=== PATIENT | female | born 1925 | race Caucasian/White ===

== ENCOUNTER 2016-03-20 07:52 | Observation (INO) | payer MEDICARE, OTHER ==
[~2016-03-20] VITALS: Ht 142.2 cm; Wt 45.0 kg
[2016-03-20 08:34] LABS: BASO % 0.4 % (0.0-1.0); EOS # 0.2 K/mm3 (0.0-0.50); EOS % 1.7 % (0.0-3.0); LARGE UNSTAINED CELL # 0.4 K/mm3 (0.0-0.4); LARGE UNSTAINED CELL % 3.9 % (0.0-4.0); LYMPH # 5.4 K/mm3 (1.5-4.5); LYMPH % 49.1 % (24.0-44.0); MEAN CORPUSCULAR HEMOGLOBIN 31.2 pg (27.0-33.0); MEAN CORPUSCULAR HGB CONC 32.8 g/dl (32.0-36.5); MEAN CORPUSCULAR VOLUME 95.2 fl (80.0-96.0); MONO # 0.6 K/mm3 (0.0-0.8); MONO % 5.6 % (0.0-5.0); NEUTROPHILS # 4.3 K/mm3 (1.8-7.7); NEUTROPHILS % 39.4 % (36.0-66.0); PLATELET COUNT, AUTOMATED 194 k/mm3 (150-450); RED CELL DISTRIBUTION WIDTH 12.7 % (11.5-14.5)
--- NOTE | 2016-03-20 08:50 | REP ---
Left lower extremity deep vein duplex ultrasound, stat request: The deep veins demonstrate normal compression, normal Doppler color flow and normal Doppler waveforms with respiration augmentation at multiple levels from the popliteal vein to the common femoral vein. There is no evidence of deep vein thrombus. There is a 3.9 by 2.3 x 3.5 cm Weldon's cyst in the popliteal fossa. Signed by Valentino Min MD 03/20/2016 08:42 A
[2016-03-20 08:52] LABS: ANION GAP 6 MEQ/L (8-16); BLOOD UREA NITROGEN 18 MG/DL (7-18); CALCIUM LEVEL 8.7 MG/DL (8.8-10.2); CARBON DIOXIDE LEVEL 31 MEQ/L (21-32); CHLORIDE LEVEL 106 MEQ/L (98-107); CREATININE FOR GFR 0.86 MG/DL (0.55-1.02); GLOMERULAR FILTRATION RATE > 60.0 (>32); GLUCOSE, FASTING 117 MG/DL (83-110); SODIUM LEVEL 143 MEQ/L (136-145)
[2016-03-20 09:24] LABS: ERYTHROCYTE SEDIMENTATION RATE 19 mm/hr (0-42)
--- NOTE | 2016-03-20 09:25 | REP ---
LEFT KNEE, FIVE VIEWS: HISTORY: Pain. There is no acute fracture or dislocation. There is narrowing of the joint spaces. Chondrocalcinosis is present. A small suprapatellar joint effusion is present. IMPRESSION: Degenerative change as described above. Signed by Jacobo Muhammad MD 03/20/2016 09:30 A
[2016-03-20] MEDS ORDERED: CALCTAB34 PO (11:14)
[2016-03-20] MEDS ORDERED: LISI-542 PO (11:14)
[2016-03-20] MEDS ORDERED: OSTETAB2 PO (11:14)
[2016-03-20] MEDS ORDERED: NITR3TA SL (11:14)
[2016-03-20] MEDS ORDERED: SYNT25TA PO (11:14)
[2016-03-20] MEDS ORDERED: TIMO5OPG OU (11:14)
[2016-03-20] MEDS ORDERED: NORC5TAB PO (11:14)
[2016-03-20] MEDS ORDERED: ASPI1TAB PO (11:14)
[2016-03-20] MEDS ORDERED: ACETAMINOPHEN TAB 650MG DOSE (2X325MG) PO PRN (12:30)
[2016-03-20] MEDS ORDERED: NORCO, ANEXSIA 5/325MG TABLET (HYDROcodone/ACETAMINOPHEN) PO PRN (12:30)
[2016-03-20] MEDS ORDERED: BISACODYL 5 MG TAB PO PRN (12:30)
--- NOTE | 2016-03-20 13:37 | HPE ---
DATE OF ADMISSION: 03/20/2016 HISTORY: The patient has a history of chronic pain. Says she has fibromyalgia but yesterday began having pain in her left knee which prevented her from ambulating. Presented to the ED today with complete inability to ambulate. Was evaluated physical therapy in the ED and advice was that she was not safe for discharge because of ability to transfer and provide adequate self-care, therefore she is admitted PAST MEDICAL HISTORY: Remarkable: 1. History of hypothyroidism. 2. Fibromyalgia. 3. She offers a remote history of rheumatoid arthritis. 4. Hiatus hernia. 5. Hypertension. 6. Dysplasia. 7. Hypothyroidism. 8. Again coronary artery disease not otherwise documented. 9. Chronic pain. CURRENT MEDICATIONS: - levofloxacin 50 mcg daily - lisinopril 10 mg daily - aspirin 81 mg daily - Reva five 5/325 one every 6 hours as needed - Osteo BiFlex one [id number] daily - Caltrate 600 - plus D one tablet daily - fexofenadine 180 mg daily presumably for allergic symptoms - nitroglycerin sublingual 0.3 mg as needed chest pain - atenolol 0.5% solution one drop affected eye twice daily presumably bilaterally - lidocaine patches as needed ALLERGIES: Include STATINS which induce myalgias, PENICILLIN causing rash and PLAVIX causes muscle curling her fingers and toes. She has had a pneumococcal vaccine Prevnar in April 2015. REVIEW OF SYSTEMS: No recent change in vision. No headache. No trouble swallowing. No nausea, vomiting, diarrhea, constipation, no recent chest pain. She is seen at [facility], last visit confirmed November 2014 with the history at that office of being evaluated for palpitations. Echocardiogram showed normal LV size and wall thickness with inferior hypokinesis. Ejection fraction of 55%. Reduced LV relaxation. AV sclerosis. Mild AR, trace MR. 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 She is status post percutaneous stenting of the right coronary and LAD in June 2002 done at [facility]. Relative contraindication to beta blockade because of resting bradycardia exam. General: Patient is alert, pleasant, cooperative, somewhat slow to respond to queries but in no apparent distress. Vital signs: Per nursing record. Full extraocular movements. No oral lesions are noted. No carotid bruits are noted. Trachea is midline without thyroid enlargement or nodularity. Lungs: Diminished breath sounds but no wheezing, rales or rhonchi are appreciated. Heart: Regular rhythm. I did not hear a murmur today. Abdomen: Protuberant but nontender. No guarding, mass or rebound detected. There is moderate kyphoscoliosis but no localizing tenderness to percussion of bony elements or over the costovertebral angles. Extremities: Show no edema. Pulses 2+ and symmetric. She has a tender area that is located over the medial aspect of knees on the left and also some and also there is similar swelling on the right knee medially but this area is not tender. There is no heat or erythema detected. She is able to move her joint reasonably well although she may be lacking a little bit of full extension. Examination of the knee was limited because of guarding. She is quite tender to light touch over this swollen area on the medial aspect of left knee which is suggestive of bursitis but as far as I can determine, anterior and posterior cruciates are intact and medial and lateral collateral ligaments are intact. Menisci testing was limited due to pain with movement and apprehension. Pulses 2+ as noted elsewhere. Skin shows no rash. No redness. No petechia. Neuro: No definite deficits. Cranial nerves are intact. Moves all extremities spontaneously. Gait was not tested. Laboratory data today remarkable for electrolytes showing only a slightly low anion gap at 6, CO2 was 31. Hematology 11,000, white count with 49% lymphocytes, 39% neutrophils, hematocrit 35, platelet count 194,000. Glucose was 117, calcium 8.7. Imaging of the knee showed some mild degenerative changes, narrowing of the joint space. Chondrocalcinosis is present radiographically creating suggestion of pseudogout, as an explanation for acute joint pain. ASSESSMENT: Joint pain, chondrocalcinosis visible on x-ray. Possible pseudogout. PLAN: Consult orthopedics. Consider a trial with colchicine versus prednisone but will hold off on any intervention until orthopedic consultation. Also on ultrasound was noted a 3.9 x 2.3 x 3.5 Weldon's cyst and no evidence of deep venous thrombosis (DVT). The patient is admitted as an observation patient. Anticipate the patient should be dischargeable with adequate pain control in less than 48 hours but discharge home is dependent on her ability to demonstrate adequate functional capability.
--- NOTE | 2016-03-20 13:37 | EDDOCDS ---
Physician Documentation [facility] Name: Marta Brurell Age: 89 yrs Sex: Female : 1925 Arrival Date: 03/20/2016 Time: 07:52 Bed 14 Private MD: Oracio Fletcher MD Disposition: 03/20/16 10:43 Hospitalization ordered by Kade Duran for Inpatient Admission. Preliminary diagnosis are Abnormalities of gait and mobility, Pain in left knee, Synovial cyst of popliteal space [Weldon], left knee. - Bed requested for 4 [place]. - Status is Inpatient Admission. mb9 - Condition is Stable. - Problem is new. - Symptoms are unchanged. Historical: - Allergies: environmental allergies; PENICILLINS (Rash); - Home Meds: 1. levothyroxine 50 mcg Oral tab 1 tab once daily 2. omeprazole 40 mg Oral cpDR 2 caps once daily 3. Lidoderm 5 % Topical ptmd 1 patch once daily 4. aspirin 81 mg Oral tab 1 tab once daily 5. Osteo Bi-Flex oral daily 6. Calcium Citrate Oral daily 7. lisinopril 5 mg Oral tab 1 tab twice a day 8. fexofenadine 180 mg Oral tab 1 tab once daily 9. Nitrostat 0.3 mg SL subl as needed 10. hydrocodone-acetaminophen 2.5-325 mg Oral tab 0.5 tab as needed 11. timolol maleate 0.5 % Opht drpd 1 drop once daily one drop each eye daily - PMHx: Fibromyalgia; GERD; Glaucoma; Hypercholesterolemia; Hypothyroidism; Myocardial infarction; raynauds diease; Rheumatoid Arthritis; - PSHx: Cardiac stents; esophagus surgery; Appendectomy; Hemorrhoidectomy; Hysterectomy; Tubal ligation; - Social history: No barriers to communication noted, The patient speaks fluent Tajik, Smoking status: Patient states was never smoker of tobacco. - Family history: No immediate family members are acutely ill. - : The pt / caregiver states he / she is not on anticoagulants. Home medication list is obtained from the patient. - Exposure Risk Screening:: None identified. Vital Signs: 03/20 08:06 BP 152 / 69; Pulse 59; Resp 18; Temp 96.6(O); Pulse Ox 99% on R/A; Weight 43.54 kg / kc3 95.99 lbs; Height 4 ft. 8 in. (142.24 cm); Pain 8/10; 13:04 BP 147 / 66; Pulse 57; Resp 17; Temp 97(TE); Pulse Ox 98% ; Pain 0/10; mb9 08:06 Body Mass Index 21.52 (43.54 kg, 142.24 cm) kc3 MDM: 08:05 IV Saline Lock ordered. br1 08:06 Knee, Complete Ordered. EDMS 08:07 CBC with Diff Ordered. EDMS 08:07 BMP Ordered. EDMS 08:07 ESR Ordered. EDMS 08:07 CRP Ordered. EDMS 08:07 Ultrasound LE Unilateral R/O DVT Ordered. EDMS 09:01 CBC with Diff Reviewed. br1 09:01 BMP Reviewed. br1 09:01 CRP Reviewed. br1 09:01 Financial registration complete. lg 09:13 PHYSICAL THERAPY EVAL & TREAT+PT ordered. EDMS 09:38 CBC with Diff Reviewed. br1 09:38 ESR Reviewed. br1 09:38 Ultrasound LE Unilateral R/O DVT Reviewed. br1 09:53 [facility] Payment Agreement was scanned into [employer] and attached to record. lg 10:26 BED REQUEST+ADM ordered. EDMS 11:10 REGULAR+DIET ordered. EDMS 11:11 REGULAR+DIET ordered. EDMS 12:48 PHYSICAL THERAPY EVAL & TREAT ordered. EDMS 12:48 Admission / Observation Status ordered. EDMS 12:48 NO ADDED SALT DIET ordered. EDMS Signatures: Dispatcher [employer] EDMS Magi Cadet RN Roxane Mirza RN JOHN [facility] Shabbir Lovell, Reg Reg lg Shankar Carlson MD MD br1 Sachin Brewster RN RN mb9 The chart was reviewed and I authenticate all verbal orders and agree with the evaluation and treatment provided.Attachments: 09:53 [facility] Payment Agreement lg MTDD
--- NOTE | 2016-03-20 13:37 | EDDOCDS ---
Nurse's Notes [facility] Name: Marta Burrell Age: 89 yrs Sex: Female : 1925 Arrival Date: 03/20/2016 Time: 07:52 Bed 14 Private MD: Oracio Fletcher MD Diagnosis: Abnormalities of gait and mobility;Pain in left knee;Synovial cyst of popliteal space [Weldon], left knee Presentation: 03/20 07:55 Presenting complaint: EMS states: Left knee pain and swelling--no known injury. Adult [facility] Sepsis Screening: The patient does not have new or worsening altered mentation. Patient's respiratory rate is less than 22. Systolic blood pressure is greater than 100. Patient has a qSOFA score of 0- Negative Sepsis Screen. Suicide/Homicide risk assessment- the patient denies having any suicidal and/or homicidal ideations and does not present with any other emotional, behavioral or mental health complaints. Status: Patient is not a account services representative or dependent. Transition of care: patient was not received from another setting of care. 07:55 Acuity: ZIYAD Level 4 [facility] 07:55 Method Of Arrival: Ambulance [facility] Triage Assessment: 08:03 The patient is triaged at the bedside. See Assessment in Nurses Notes section of ED mcp record. Historical: - Allergies: environmental allergies; PENICILLINS (Rash); - Home Meds: 1. levothyroxine 50 mcg Oral tab 1 tab once daily 2. omeprazole 40 mg Oral cpDR 2 caps once daily 3. Lidoderm 5 % Topical ptmd 1 patch once daily 4. aspirin 81 mg Oral tab 1 tab once daily 5. Osteo Bi-Flex oral daily 6. Calcium Citrate Oral daily 7. lisinopril 5 mg Oral tab 1 tab twice a day 8. fexofenadine 180 mg Oral tab 1 tab once daily 9. Nitrostat 0.3 mg SL subl as needed 10. hydrocodone-acetaminophen 2.5-325 mg Oral tab 0.5 tab as needed 11. timolol maleate 0.5 % Opht drpd 1 drop once daily one drop each eye daily - PMHx: Fibromyalgia; GERD; Glaucoma; Hypercholesterolemia; Hypothyroidism; Myocardial infarction; raynauds diease; Rheumatoid Arthritis; - PSHx: Cardiac stents; esophagus surgery; Appendectomy; Hemorrhoidectomy; Hysterectomy; Tubal ligation; - Social history: No barriers to communication noted, The patient speaks fluent Bulgarian, Smoking status: Patient states was never smoker of tobacco. - Family history: No immediate family members are acutely ill. - : The pt / caregiver states he / she is not on anticoagulants. Home medication list is obtained from the patient. - Exposure Risk Screening:: None identified. Screenin:04 Screening information is obtained from the patient. Fall risk: At risk due to mcp immobility, The following interventions are performed due to a positive Fall Risk Screen: Fall Risk is added to Special Handling on the patient Summary Screen. A Fall Risk Bracelet was applied to the patient. Side Rails are placed in the up position. A Call Garcia is given with instruction to call for help when getting out of bed. Fall Alert bracelet is placed on the patient. Assistance ADL's: requires no assistance with activities of daily living. Abuse/DV Screen: The patient / caregiver reports he/she is: not in a situation that causes fear, pain or injury. Nutritional screening: No deficits noted. home support is adequate. 08:28 Advance Directives: Currently, there is a health care proxy, Lior Burrell--. mcp There is no active DNR order. Assessment: 08:05 General: Appears uncomfortable, Behavior is cooperative. Pain: Location: left knee Pain mcp currently is 7 out of 10 on a pain scale. Neurological: No deficits noted. Respiratory: Airway is patent Respiratory effort is even, unlabored. Derm: Skin is pink, warm & dry. Musculoskeletal: Circulation, motion, and sensation intact Swelling present in left knee. 09:15 General: Attempted to walk pt--unable to ambulate without assist of one. Pt unable to mcp walk with walker without assist of one. Dr Carlson notified of this and order for PT eval received. 10:00 General: Appears in no apparent distress, Behavior is cooperative. Pain: Location: left mcp knee. Neurological: No deficits noted. Respiratory: Airway is patent Respiratory effort is even, unlabored. Derm: Skin is pink, warm & dry. 11:00 General: Appears in no apparent distress, Behavior is cooperative. Neurological: No mcp deficits noted. Respiratory: Airway is patent Respiratory effort is even, unlabored. Derm: Skin is pink, warm & dry. 11:45 General: Dr Duran in to see pt at this time. . mb9 11:46 General: Appears in no apparent distress, Behavior is cooperative. Respiratory: Airway mb9 is patent Respiratory effort is even, unlabored. 12:09 Pain: Location: left knee Pain currently is 0 out of 10 on a pain scale. Aggravated by mb9 exercise, increased activity, repositioning, weight bearing. 12:39 General: pt transferred from wheelchair to stretcher. pt appeared unsafe and needed max mb9 assist from this RN. . 13:04 Reassessment: Patient appears in no apparent distress at this time. Patient states mb9 feeling better. Adult Sepsis Screening: The patient does not have new or worsening altered mentation. Patient's respiratory rate is less than 22. Systolic blood pressure is greater than 100. Patient has a qSOFA score of 0- Negative Sepsis Screen. General: Appears in no apparent distress, uncomfortable, Behavior is cooperative. Respiratory: Airway is patent Respiratory effort is even, unlabored. 13:28 Reassessment: Patient appears in no apparent distress at this time. Patient states mb9 feeling better. General: Appears comfortable, Behavior is appropriate for age, cooperative. Respiratory: Airway is patent Respiratory effort is even, unlabored. Vital Signs: 08:06 BP 152 / 69; Pulse 59; Resp 18; Temp 96.6(O); Pulse Ox 99% on R/A; Weight 43.54 kg; kc3 Height 4 ft. 8 in. (142.24 cm); Pain 8/10; 13:04 BP 147 / 66; Pulse 57; Resp 17; Temp 97(TE); Pulse Ox 98% ; Pain 0/10; mb9 08:06 Body Mass Index 21.52 (43.54 kg, 142.24 cm) [facility] Vitals: 08:06 Log In Time N/A - ambulance arrival. [facility] ED Course: 07:52 Patient visited by Barbra Green, [employer]. lbd 07:52 Patient moved to Waiting lbd 07:53 Oracio Fletcher is Private Physician. lbd 07:53 Patient moved to 14 lbd 07:55 Shankar Carlson MD is Attending Physician. br1 07:56 Triage Initiated mcp 08:04 Patient visited by Shankar Carlson MD. br1 08:06 Patient visited by Roxane Mack RN. mcp 08:19 Patient moved to [facility] br3 08:23 CRP Sent. mcp 08:23 ESR Sent. mcp 08:23 BMP Sent. mcp 08:23 CBC with Diff Sent. mcp 08:23 Inserted saline lock: 20 gauge in right antecubital area The patient tolerated the mcp procedure well. by Tee Fierro, [employer] Student. 08:29 Patient visited by Roxane Mack RN. mcp 08:41 Patient moved to 14 br3 09:04 Ultrasound LE Unilateral R/O DVT Returned. EDMS 09:17 Patient visited by Roxane Mack RN. mcp 09:48 Knee, Complete Returned. EDMS 09:53 [facility] Payment Agreement was scanned into [employer] and attached to record. lg 10:41 Patient visited by Shankar Carlson MD. br1 10:43 Kade Duran MD is Hospitalizing Provider. br1 11:01 Patient visited by Roxane Mack RN. mcp 13:04 The patient / caregiver is instructed regarding the plan of care and ED course. Patient mb9 has correct armband on for positive identification. Placed in gown. 13:04 No procedures done that require assistance. mb9 13:28 Diet tray given. mb9 Order Results: Lab Order: CBC with Diff; SPEC'M 03/20/16 08:20 Test: WHITE BLOOD COUNT; Value: 11.0; Range: 4.0-10.0; Abnormal: Above high normal; Units: K/mm3; Status: F Test: RED BLOOD COUNT; Value: 3.67; Range: 4.00-5.40; Abnormal: Below low normal; Units: M/mm3; Status: F Test: HEMOGLOBIN; Value: 11.4; Range: 12.0-16.0; Abnormal: Below low normal; Units: g/dl; Status: F Test: HEMATOCRIT; Value: 34.9; Range: 36.0-47.0; Abnormal: Below low normal; Units: %; Status: F Test: MEAN CORPUSCULAR VOLUME; Value: 95.2; Range: 80.0-96.0; Units: fl; Status: F Test: MEAN CORPUSCULAR HEMOGLOBIN; Value: 31.2; Range: 27.0-33.0; Units: pg; Status: F Test: MEAN CORPUSCULAR HGB CONC; Value: 32.8; Range: 32.0-36.5; Units: g/dl; Status: F Test: RED CELL DISTRIBUTION WIDTH; Value: 12.7; Range: 11.5-14.5; Units: %; Status: F Test: PLATELET COUNT, AUTOMATED; Value: 194; Range: 150-450; Units: k/mm3; Status: F Test: NEUTROPHILS %; Value: 39.4; Range: 36.0-66.0; Units: %; Status: F Test: LYMPH %; Value: 49.1; Range: 24.0-44.0; Abnormal: Above high normal; Units: %; Status: F Test: MONO %; Value: 5.6; Range: 0.0-5.0; Abnormal: Above high normal; Units: %; Status: F Test: EOS %; Value: 1.7; Range: 0.0-3.0; Units: %; Status: F Test: BASO %; Value: 0.4; Range: 0.0-1.0; Units: %; Status: F Test: LARGE UNSTAINED CELL %; Value: 3.9; Range: 0.0-4.0; Units: %; Status: F Test: NEUTROPHILS #; Value: 4.3; Range: 1.8-7.7; Units: K/mm3; Status: F Test: LYMPH #; Value: 5.4; Range: 1.5-4.5; Abnormal: Above high normal; Units: K/mm3; Status: F Test: MONO #; Value: 0.6; Range: 0.0-0.8; Units: K/mm3; Status: F Test: EOS #; Value: 0.2; Range: 0.0-0.50; Units: K/mm3; Status: F Test: BASO #; Value: 0.0; Range: 0.0-0.2; Units: K/mm3; Status: F Test: LARGE UNSTAINED CELL #; Value: 0.4; Range: 0.0-0.4; Units: K/mm3; Status: F Test Note: ; A Pathologist review of this differential can help in the evaluation of a differential diagnosis. Please order a Pathologist Review (PATHREVCOMP) if deemed necessary. Results are subject to change if a Pathologist Review is performed. Lab Order: BMP; SPEC'M 03/20/16 08:20 Test: GLUCOSE, FASTING; Value: 117; Range: 83-110; Abnormal: Above high normal; Units: MG/DL; Status: F Test: BLOOD UREA NITROGEN; Value: 18; Range: 7-18; Units: MG/DL; Status: F Test: CREATININE FOR GFR; Value: 0.86; Range: 0.55-1.02; Units: MG/DL; Status: F Test: GLOMERULAR FILTRATION RATE; Value: > 60.0; Range: >32; Status: F Test: SODIUM LEVEL; Value: 143; Range: 136-145; Units: MEQ/L; Status: F Test: POTASSIUM SERUM; Value: 4.0; Range: 3.5-5.1; Units: MEQ/L; Status: F Test: CHLORIDE LEVEL; Value: 106; Range: 98-107; Units: MEQ/L; Status: F Test: CARBON DIOXIDE LEVEL; Value: 31; Range: 21-32; Units: MEQ/L; Status: F Test: ANION GAP; Value: 6; Range: 8-16; Abnormal: Below low normal; Units: MEQ/L; Status: F Test: CALCIUM LEVEL; Value: 8.7; Range: 8.8-10.2; Abnormal: Below low normal; Units: MG/DL; Status: F Test Note: ; Units are mL/min/1.73 m2 Chronic Kidney Disease Staging per NKF: Stage I & II GFR >=60 Normal to Mildly Decreased Stage III GFR 30-59 Moderately Decreased Stage IV GFR 15-29 Severely Decreased Stage V GFR <15 Very Little GFR Left ESRD GFR <15 on TAWER Lab Order: ESR; SPEC'M 03/20/16 08:20 Test: ERYTHROCYTE SEDIMENTATION RATE; Value: 19; Range: 0-42; Units: mm/hr; Status: F Lab Order: CRP; SPEC'M 03/20/16 08:20 Test: C REACTIVE PROTEIN QUANTITATIV; Value: < 0.30; Range: 0.00-0.30; Units: MG/DL; Status: F Radiology Order: Knee, Complete Test: Knee, Complete REASON FOR EXAMINATION: pain and swelling; LEFT KNEE, FIVE VIEWS:; ; HISTORY: Pain.; ; There is no acute fracture or dislocation. There is narrowing of the joint; spaces. Chondrocalcinosis is present. A small suprapatellar joint effusion is; present.; ; IMPRESSION:; ; Degenerative change as described above.; ; ; Signed by; Jacobo Muhammad MD 03/20/2016 09:30 A; Radiology Order: Ultrasound LE Unilateral R/O DVT Test: Ultrasound LE Unilateral R/O DVT REASON FOR EXAMINATION: Deformity/Swelling; Left lower extremity deep vein duplex ultrasound, stat request:; ; The deep veins demonstrate normal compression, normal Doppler color flow and; normal Doppler waveforms with respiration augmentation at multiple levels from; the popliteal vein to the common femoral vein.; ; There is no evidence of deep vein thrombus.; ; There is a 3.9 by 2.3 x 3.5 cm Weldon's cyst in the popliteal fossa.; ; ; Signed by; Valentino Min MD 03/20/2016 08:42 A; Outcome: 10:43 Decision to Hospitalize by Provider. br1 13:04 Discharge Assessment: Patient awake, alert and oriented x 3. No cognitive and/or mb9 functional deficits noted. Patient verbalized understanding of disposition instructions. patient administered narcotics - no. The following High Risk Discharge criteria are identified: None. Admitted to Med/Surg accompanied by tech. Condition: good Condition: stable Condition: improved. Ultrasound Study completed. Property :Personal belongings accompany Pt. 13:37 Patient left the ED. mb9 Signatures: Dispatcher [employer] EDMS Barbra Green, [employer] lbd Roxane Mack RN RN mcp Ganter, LoriLee, Reg Reg lg Shankar Carlson MD MD br1 Elena Stanley br3 Sachin Brewster RN RN mb9 Danyell Ruelas RN RN kc3 MTDD
[2016-03-20 13:40] VITALS: BP 146/62
[2016-03-20] MEDS ORDERED: ASPIRIN 81 MG ENTERIC TAB PO SCH (17:00)
[2016-03-20] MEDS: LISINOPRIL 5 MG TAB PO SCH (20:25)
[2016-03-20] MEDS ORDERED: TIMOLOL MALEATE 0.5% OPHTH SOLN 5 ML OU SCH (21:00)
[2016-03-20 22:00] VITALS: BP 136/68
[2016-03-21 06:00] VITALS: BP 106/60
[2016-03-21] MEDS ORDERED: LEVOTHYROXINE 0.05 MG TAB (50 MCG) PO SCH (06:00)
[2016-03-21] MEDS ORDERED: LEVOTHYROXINE 0.025 MG TAB (25 MCG) PO SCH (06:00)
[2016-03-21 06:23] LABS: BASO % 0.3 % (0.0-1.0); EOS # 0.2 K/mm3 (0.0-0.50); EOS % 1.5 % (0.0-3.0); LARGE UNSTAINED CELL # 0.3 K/mm3 (0.0-0.4); LARGE UNSTAINED CELL % 2.4 % (0.0-4.0); LYMPH # 5.1 K/mm3 (1.5-4.5); LYMPH % 43.6 % (24.0-44.0); MEAN CORPUSCULAR HEMOGLOBIN 31.3 pg (27.0-33.0); MEAN CORPUSCULAR HGB CONC 32.9 g/dl (32.0-36.5); MEAN CORPUSCULAR VOLUME 95.3 fl (80.0-96.0); MONO # 0.7 K/mm3 (0.0-0.8); MONO % 6.7 % (0.0-5.0); NEUTROPHILS # 5.1 K/mm3 (1.8-7.7); NEUTROPHILS % 45.5 % (36.0-66.0); PLATELET COUNT, AUTOMATED 221 k/mm3 (150-450); RED CELL DISTRIBUTION WIDTH 12.9 % (11.5-14.5)
[2016-03-21 06:40] LABS: WHITE BLOOD COUNT 11.1 K/mm3 (4.0-10.0)
[2016-03-21 06:45] LABS: ALBUMIN 3.1 GM/DL (3.2-5.2); ALBUMIN/GLOBULIN RATIO 0.97 (1.00-1.93); ALKALINE PHOSPHATASE 61 U/L (45-117); ALT/SGPT 17 U/L (12-78); ANION GAP 7 MEQ/L (8-16); AST/SGOT 16 U/L (15-37); BILIRUBIN,TOTAL 0.8 MG/DL (0.2-1.0); BLOOD UREA NITROGEN 17 MG/DL (7-18); CALCIUM LEVEL 8.2 MG/DL (8.8-10.2); CARBON DIOXIDE LEVEL 28 MEQ/L (21-32); CHLORIDE LEVEL 106 MEQ/L (98-107); CREATININE FOR GFR 0.89 MG/DL (0.55-1.02); FREE T4 0.93 NG/DL (0.76-1.46); GLOMERULAR FILTRATION RATE > 60.0 (>32); GLUCOSE, FASTING 84 MG/DL (83-110); SODIUM LEVEL 141 MEQ/L (136-145); TOTAL PROTEIN 6.3 GM/DL (6.4-8.2)
[2016-03-21 08:28] LABS: ERYTHROCYTE SEDIMENTATION RATE 27 mm/hr (0-42)
--- NOTE | 2016-03-21 08:29 | IPNPDOC ---
Subjective General Date Seen The patient was seen on 03/21/16. Subjective Chief Complaint/HPI The patient is a 89-year-old female admitted with a reason for visit of Left Knee Pain. Events since last encounter Seen and evaluated on 4Pav. Reports a mild improvement in L knee pain but continued inability to ambulate. PT/OT leonardoal deemed her unsafe at home due to the presence of stairs in the home. General: Reports: Normal Appetite, Denies: Chills, Fatigue, Malaise, Night Sweats Constitutional: Denies: Chills, Fever, Night Sweats Skin: Denies: Breakdown, Lesions, Rash Pulmonary: Denies: Cough, Dyspnea Cardiovascular: Denies: Chest Pain, Lt Headedness, Orthopnea, Palpitations, Paroxysmal Noc. Dyspnea Gastrointestinal: Denies: Abdominal Pain, Constipation, Diarrhea, Nausea, Vomiting Hematologic: Denies: Bleeding Excessively, Bruising Musculoskeletal: Reports: Joint Pain (L knee) Neurological: Denies: Change in speech, Confusion, Numbness, Weakness GME ATTESTATION My preceptor for this patient encounter was physically present in the building during the encounter and was fully available. As needed, all aspects of the patient interview, examination, medical decision making process, and medical care plan development were reviewed and approved by the preceptor. Preceptor is aware and concurs with the plan as stated in the body of this note and will attest to such by his/her cosignature. Objective Physical Examination General Exam: Positive: Alert, No Acute Distress Neck Exam: Positive: Supple, Negative: JVD, thyromegaly Chest Exam: Positive: Clear to auscultation, Normal air movement Heart Exam: Positive: Normal S1, Normal S2, Rate Normal, Regular Rhythm, Negative: Murmurs, Rubs Abdomen Exam: Positive: Normal bowel sounds, Soft, Negative: Hepatospenomegaly, Tenderness Extremity Exam: Positive: Other (Medial L knee pain w/ medial swelling and mild restriction of extension. 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 She'll be started on 40 of prednisone and continue with PT, who as deemed her unsafe at home 2/2 inability to ambulate stairs. Anticipate a week or so of steroid taper to calm underlying dz process, improve pain, and allow her to ambulate safely. (2) Hypertension Status: Chronic Response to Treatment: Stable Problem Text: BPs WNL. Continue Lisinopril. (3) Chronic pain Status: Chronic Response to Treatment: Stable Problem Text: Continue norco (4) Glaucoma Status: Chronic Response to Treatment: Stable Problem Text: Continue Timolol (5) Hypothyroidism Status: Chronic Response to Treatment: Stable Problem Text: Continue Synthroid Plan/VTE VTE Prophylaxis Ordered?: Yes (Lovenox) Plan Diet: Continue Current Activity: Advance Therapy: PT, OT Anticipated Discharge: Home Disposition Potential dc in AM if cleared by PT VS, I&O, 24H, Fishbone Vital Signs/I&O Vital Signs Date Time Temp Pulse Resp B/P Pulse Ox O2 Delivery O2 Flow Rate FiO2 03/21/16 06:00 98.0 73 15 106/60 95 Room Air I&O- Last 24 Hours up to 6 AM 03/21/16 06:00 Intake Total 300 ml Output Total 1925 ml Balance -1625 ml Laboratory Data 24H LABS Laboratory Tests 2 03/21/16 05:40: Blood Urea Nitrogen 17, Creatinine 0.89, Sodium Level 141, Potassium Level 4.0, Chloride Level 106, Carbon Dioxide Level 28, Calcium Level 8.2L, Aspartate Amino Transf (AST/SGOT) 16, Alanine Aminotransferase (ALT/SGPT) 17, Alkaline Phosphatase 61, Total Bilirubin 0.8, Total Protein 6.3L, Albumin 3.1L, Albumin/ Globulin Ratio 0.97L, Anion Gap 7L, White Blood Count 11.1H, Red Blood Count 3.74L, Hemoglobin 11.7L, Hematocrit 35.7L, Mean Corpuscular Volume 95.3, Mean Corpuscular Hemoglobin 31.3, Mean Corpuscular Hemoglobin Concent 32.9, Red Cell Distribution Width 12.9, Platelet Count 221, Neutrophils (%) (Auto) 45.5, Lymphocytes (%) (Auto) 43.6, Monocytes (%) (Auto) 6.7H, Eosinophils (%) (Auto) 1.5, Basophils (%) (Auto) 0.3, Neutrophils # (Auto) 5.1, Lymphocytes # (Auto) 5.1H, Monocytes # (Auto) 0.7, Eosinophils # (Auto) 0.2, Basophils # (Auto) 0.0, C-Reactive Protein, Quantitative 0.70H, Free Thyroxine 0.93, Glomerular Filtration Rate > 60.0, Large Unclassified Cells # 0.3, Large Unclassified Cells % 2.4, Thyroid Stimulating Hormone (TSH) 2.360 CBC/BMP Laboratory Tests 03/21/16 05:40 Calcium Level 8.2 L, Aspartate Amino Transf (AST/SGOT) 16, Alanine Aminotransferase (ALT/SGPT) 17, Alkaline Phosphatase 61, Total Bilirubin 0.8, Total Protein 6.3 L, Albumin 3.1 L, Red Blood Count 3.74 L, Mean Corpuscular Volume 95.3, Mean Corpuscular Hemoglobin 31.3, Mean Corpuscular Hemoglobin Concent 32.9, Red Cell Distribution Width 12.9, Neutrophils (%) (Auto) 45.5, Lymphocytes (%) (Auto) 43.6, Monocytes (%) (Auto) 6.7 H, Eosinophils (%) (Auto) 1.5, Basophils (%) (Auto) 0.3, Neutrophils # (Auto) 5.1, Lymphocytes # (Auto) 5.1 H, Monocytes # (Auto) 0.7, Eosinophils # (Auto) 0.2, Basophils # (Auto) 0.0 GME ATTESTATION GME ATTESTATION My preceptor for this patient encounter was physically present in the building during the encounter and was fully available. As needed, all aspects of the patient interview, examination, medical decision making process, and medical care plan development were reviewed and approved by the preceptor. Preceptor is aware and concurs with the plan as stated in the body of this note and will attest to such by his/her cosignature. ATTENDING NOTE Patient seen and examined. Much improved at this point; will discharge with 5 day course of prednisone for treatment of pseudogout. LUANA PEREA DO Mar 21, 2016 08:29 Kade Duran MD Mar 21, 2016 11:01
[2016-03-21 09:00] VITALS: BP 101/53
[2016-03-21] MEDS ORDERED: FEXOFENADINE 60 MG TAB PO SCH (09:00)
[2016-03-21] MEDS ORDERED: ENOXAPARIN 30 MG/0.3 ML SYR (J1650) SC SCH (09:00)
[2016-03-21] MEDS ORDERED: TIMOLOL 0.5% OU SCH (09:00)
[2016-03-21] MEDS ORDERED: LISINOPRIL 10 MG TAB PO SCH (09:00)
[2016-03-21] MEDS: LISINOPRIL 5 MG TAB PO SCH (09:00)
[2016-03-21] MEDS ORDERED: predniSONE 20 MG TAB PO SCH (09:00)
[2016-03-21] MEDS ORDERED: PRED20TA PO (11:06)
--- NOTE | 2016-03-21 12:23 | DSES ---
DATE OF ADMISSION: 03/20/2016 DATE OF DISCHARGE: Patient was admitted for complaint of acute onset of pain in her left knee which prohibited ambulation, admitted as an observation patient. She has gradually improved overnight. Orthopedic consultation was requested. Review of his images confirmed impression of chondrocalcinosis/pseudogout. She had had a previous episode of acute inflammation involving the left wrist. Since that time, uric acid had been measured and was normal. Hospital course was she was put at rest, given nursing support, ambulated less and gradually pain improved. Found significant benefit from application of cold pack and at this time, she is on no special meds but intended to discharge her on prednisone 20 mg daily for 5 days or until pain stops, which ever comes first. She will follow up with her usual care provider, Dr. David in approximately 2 weeks. DISCHARGE DIAGNOSES: Acute pseudogout involving the left knee, inability to ambulate because of pain, improved. Hypothyroidism. History of coronary artery disease. Chronic pain. PLAN: The patient will be discharged on current medications consisting of acetaminophen, hydrocodone 5/325 one every 6 as needed pain, aspirin 81 mg daily, calcium citrate plus one tablet daily, levofloxacin 25 mcg, she is currently taking half of 50, lisinopril 5 mg twice daily, nitroglycerin 0.3 mg sublingual as needed pain, Osteo Biflex one tablet daily, prednisone 20 mg daily for 5 days or until pain stops which ever comes first, and timolol gel 0.5% one drop each eye daily. Diet no added salt. Activity as tolerated. Follow up 2 weeks with her usual care provider.
--- NOTE | 2016-03-22 14:38 | EDDOCDS ---
Nurse's Notes [facility] Name: Marta Burrell Age: 89 yrs Sex: Female : 1925 Arrival Date: 03/20/2016 Time: 07:52 Bed 14 Private MD: Oracio Fletcher MD Diagnosis: Abnormalities of gait and mobility;Pain in left knee;Synovial cyst of popliteal space [Weldon], left knee Presentation: 03/20 07:55 Presenting complaint: EMS states: Left knee pain and swelling--no known injury. Adult [facility] Sepsis Screening: The patient does not have new or worsening altered mentation. Patient's respiratory rate is less than 22. Systolic blood pressure is greater than 100. Patient has a qSOFA score of 0- Negative Sepsis Screen. Suicide/Homicide risk assessment- the patient denies having any suicidal and/or homicidal ideations and does not present with any other emotional, behavioral or mental health complaints. Status: Patient is not a business services intern or dependent. Transition of care: patient was not received from another setting of care. 07:55 Acuity: ZIYAD Level 4 [facility] 07:55 Method Of Arrival: Ambulance [facility] Triage Assessment: 08:03 The patient is triaged at the bedside. See Assessment in Nurses Notes section of ED mcp record. Historical: - Allergies: environmental allergies; PENICILLINS (Rash); - Home Meds: 1. levothyroxine 50 mcg Oral tab 1 tab once daily 2. omeprazole 40 mg Oral cpDR 2 caps once daily 3. Lidoderm 5 % Topical ptmd 1 patch once daily 4. aspirin 81 mg Oral tab 1 tab once daily 5. Osteo Bi-Flex oral daily 6. Calcium Citrate Oral daily 7. lisinopril 5 mg Oral tab 1 tab twice a day 8. fexofenadine 180 mg Oral tab 1 tab once daily 9. Nitrostat 0.3 mg SL subl as needed 10. hydrocodone-acetaminophen 2.5-325 mg Oral tab 0.5 tab as needed 11. timolol maleate 0.5 % Opht drpd 1 drop once daily one drop each eye daily - PMHx: Fibromyalgia; GERD; Glaucoma; Hypercholesterolemia; Hypothyroidism; Myocardial infarction; raynauds diease; Rheumatoid Arthritis; - PSHx: Cardiac stents; esophagus surgery; Appendectomy; Hemorrhoidectomy; Hysterectomy; Tubal ligation; - Social history: No barriers to communication noted, The patient speaks fluent German, Smoking status: Patient states was never smoker of tobacco. - Family history: No immediate family members are acutely ill. - : The pt / caregiver states he / she is not on anticoagulants. Home medication list is obtained from the patient. - Exposure Risk Screening:: None identified. Screenin:04 Screening information is obtained from the patient. Fall risk: At risk due to mcp immobility, The following interventions are performed due to a positive Fall Risk Screen: Fall Risk is added to Special Handling on the patient Summary Screen. A Fall Risk Bracelet was applied to the patient. Side Rails are placed in the up position. A Call Garcia is given with instruction to call for help when getting out of bed. Fall Alert bracelet is placed on the patient. Assistance ADL's: requires no assistance with activities of daily living. Abuse/DV Screen: The patient / caregiver reports he/she is: not in a situation that causes fear, pain or injury. Nutritional screening: No deficits noted. home support is adequate. 08:28 Advance Directives: Currently, there is a health care proxy, Lior Burrell--. mcp There is no active DNR order. Assessment: 08:05 General: Appears uncomfortable, Behavior is cooperative. Pain: Location: left knee Pain mcp currently is 7 out of 10 on a pain scale. Neurological: No deficits noted. Respiratory: Airway is patent Respiratory effort is even, unlabored. Derm: Skin is pink, warm & dry. Musculoskeletal: Circulation, motion, and sensation intact Swelling present in left knee. 09:15 General: Attempted to walk pt--unable to ambulate without assist of one. Pt unable to mcp walk with walker without assist of one. Dr Carlson notified of this and order for PT eval received. 10:00 General: Appears in no apparent distress, Behavior is cooperative. Pain: Location: left mcp knee. Neurological: No deficits noted. Respiratory: Airway is patent Respiratory effort is even, unlabored. Derm: Skin is pink, warm & dry. 11:00 General: Appears in no apparent distress, Behavior is cooperative. Neurological: No mcp deficits noted. Respiratory: Airway is patent Respiratory effort is even, unlabored. Derm: Skin is pink, warm & dry. 11:45 General: Dr Duran in to see pt at this time. . mb9 11:46 General: Appears in no apparent distress, Behavior is cooperative. Respiratory: Airway mb9 is patent Respiratory effort is even, unlabored. 12:09 Pain: Location: left knee Pain currently is 0 out of 10 on a pain scale. Aggravated by mb9 exercise, increased activity, repositioning, weight bearing. 12:39 General: pt transferred from wheelchair to stretcher. pt appeared unsafe and needed max mb9 assist from this RN. . 13:04 Reassessment: Patient appears in no apparent distress at this time. Patient states mb9 feeling better. Adult Sepsis Screening: The patient does not have new or worsening altered mentation. Patient's respiratory rate is less than 22. Systolic blood pressure is greater than 100. Patient has a qSOFA score of 0- Negative Sepsis Screen. General: Appears in no apparent distress, uncomfortable, Behavior is cooperative. Respiratory: Airway is patent Respiratory effort is even, unlabored. 13:28 Reassessment: Patient appears in no apparent distress at this time. Patient states mb9 feeling better. General: Appears comfortable, Behavior is appropriate for age, cooperative. Respiratory: Airway is patent Respiratory effort is even, unlabored. Vital Signs: 08:06 BP 152 / 69; Pulse 59; Resp 18; Temp 96.6(O); Pulse Ox 99% on R/A; Weight 43.54 kg; kc3 Height 4 ft. 8 in. (142.24 cm); Pain 8/10; 13:04 BP 147 / 66; Pulse 57; Resp 17; Temp 97(TE); Pulse Ox 98% ; Pain 0/10; mb9 08:06 Body Mass Index 21.52 (43.54 kg, 142.24 cm) [facility] Vitals: 08:06 Log In Time N/A - ambulance arrival. [facility] ED Course: 07:52 Patient visited by Barbra Green, Carpenter Inspector. lbd 07:52 Patient moved to Waiting lbd 07:53 Oracio Fletcher is Private Physician. lbd 07:53 Patient moved to 14 lbd 07:55 Shankar Carlson MD is Attending Physician. br1 07:56 Triage Initiated mcp 08:04 Patient visited by Shankar Carlson MD. br1 08:06 Patient visited by Roxane Mack RN. mcp 08:19 Patient moved to [facility] br3 08:23 CRP Sent. mcp 08:23 ESR Sent. mcp 08:23 BMP Sent. [facility] 08:23 CBC with Diff Sent. mcp 08:23 Inserted saline lock: 20 gauge in right antecubital area The patient tolerated the mcp procedure well. by Tee Fierro, Tax Collection Coordinator Student. 08:29 Patient visited by Roxane Mack RN. mcp 08:41 Patient moved to 14 br3 09:04 Ultrasound LE Unilateral R/O DVT Returned. EDMS 09:17 Patient visited by Roxane Mack RN. mcp 09:48 Knee, Complete Returned. EDMS 09:53 [facility] Payment Agreement was scanned into [employer] and attached to record. lg 10:41 Patient visited by Shankar Carlson MD. br1 10:43 Kade Duran MD is Hospitalizing Provider. br1 11:01 Patient visited by Roxane Mack RN. mcp 13:04 The patient / caregiver is instructed regarding the plan of care and ED course. Patient mb9 has correct armband on for positive identification. Placed in gown. 13:04 No procedures done that require assistance. mb9 13:28 Diet tray given. mb9 03/21 11:44 T-Sheet-- Draft Copy was scanned into [employer] and attached to record. gb 11:44 PCR was scanned into [employer] and attached to record. gb 11:44 Radiology Report was scanned into [employer] and attached to record. gb Order Results: Lab Order: CBC with Diff; SPEC'M 03/20/16 08:20 Test: WHITE BLOOD COUNT; Value: 11.0; Range: 4.0-10.0; Abnormal: Above high normal; Units: K/mm3; Status: F Test: RED BLOOD COUNT; Value: 3.67; Range: 4.00-5.40; Abnormal: Below low normal; Units: M/mm3; Status: F Test: HEMOGLOBIN; Value: 11.4; Range: 12.0-16.0; Abnormal: Below low normal; Units: g/dl; Status: F Test: HEMATOCRIT; Value: 34.9; Range: 36.0-47.0; Abnormal: Below low normal; Units: %; Status: F Test: MEAN CORPUSCULAR VOLUME; Value: 95.2; Range: 80.0-96.0; Units: fl; Status: F Test: MEAN CORPUSCULAR HEMOGLOBIN; Value: 31.2; Range: 27.0-33.0; Units: pg; Status: F Test: MEAN CORPUSCULAR HGB CONC; Value: 32.8; Range: 32.0-36.5; Units: g/dl; Status: F Test: RED CELL DISTRIBUTION WIDTH; Value: 12.7; Range: 11.5-14.5; Units: %; Status: F Test: PLATELET COUNT, AUTOMATED; Value: 194; Range: 150-450; Units: k/mm3; Status: F Test: NEUTROPHILS %; Value: 39.4; Range: 36.0-66.0; Units: %; Status: F Test: LYMPH %; Value: 49.1; Range: 24.0-44.0; Abnormal: Above high normal; Units: %; Status: F Test: MONO %; Value: 5.6; Range: 0.0-5.0; Abnormal: Above high normal; Units: %; Status: F Test: EOS %; Value: 1.7; Range: 0.0-3.0; Units: %; Status: F Test: BASO %; Value: 0.4; Range: 0.0-1.0; Units: %; Status: F Test: LARGE UNSTAINED CELL %; Value: 3.9; Range: 0.0-4.0; Units: %; Status: F Test: NEUTROPHILS #; Value: 4.3; Range: 1.8-7.7; Units: K/mm3; Status: F Test: LYMPH #; Value: 5.4; Range: 1.5-4.5; Abnormal: Above high normal; Units: K/mm3; Status: F Test: MONO #; Value: 0.6; Range: 0.0-0.8; Units: K/mm3; Status: F Test: EOS #; Value: 0.2; Range: 0.0-0.50; Units: K/mm3; Status: F Test: BASO #; Value: 0.0; Range: 0.0-0.2; Units: K/mm3; Status: F Test: LARGE UNSTAINED CELL #; Value: 0.4; Range: 0.0-0.4; Units: K/mm3; Status: F Test Note: ; A Pathologist review of this differential can help in the evaluation of a differential diagnosis. Please order a Pathologist Review (PATHREVCOMP) if deemed necessary. Results are subject to change if a Pathologist Review is performed. Lab Order: BMP; SPEC'M 03/20/16 08:20 Test: GLUCOSE, FASTING; Value: 117; Range: 83-110; Abnormal: Above high normal; Units: MG/DL; Status: F Test: BLOOD UREA NITROGEN; Value: 18; Range: 7-18; Units: MG/DL; Status: F Test: CREATININE FOR GFR; Value: 0.86; Range: 0.55-1.02; Units: MG/DL; Status: F Test: GLOMERULAR FILTRATION RATE; Value: > 60.0; Range: >32; Status: F Test: SODIUM LEVEL; Value: 143; Range: 136-145; Units: MEQ/L; Status: F Test: POTASSIUM SERUM; Value: 4.0; Range: 3.5-5.1; Units: MEQ/L; Status: F Test: CHLORIDE LEVEL; Value: 106; Range: 98-107; Units: MEQ/L; Status: F Test: CARBON DIOXIDE LEVEL; Value: 31; Range: 21-32; Units: MEQ/L; Status: F Test: ANION GAP; Value: 6; Range: 8-16; Abnormal: Below low normal; Units: MEQ/L; Status: F Test: CALCIUM LEVEL; Value: 8.7; Range: 8.8-10.2; Abnormal: Below low normal; Units: MG/DL; Status: F Test Note: ; Units are mL/min/1.73 m2 Chronic Kidney Disease Staging per NKF: Stage I & II GFR >=60 Normal to Mildly Decreased Stage III GFR 30-59 Moderately Decreased Stage IV GFR 15-29 Severely Decreased Stage V GFR <15 Very Little GFR Left ESRD GFR <15 on [facility]IST Lab Order: ESR; SPEC'M 03/20/16 08:20 Test: ERYTHROCYTE SEDIMENTATION RATE; Value: 19; Range: 0-42; Units: mm/hr; Status: F Lab Order: CRP; SPEC'M 03/20/16 08:20 Test: C REACTIVE PROTEIN QUANTITATIV; Value: < 0.30; Range: 0.00-0.30; Units: MG/DL; Status: F Radiology Order: Knee, Complete Test: Knee, Complete REASON FOR EXAMINATION: pain and swelling; LEFT KNEE, FIVE VIEWS:; ; HISTORY: Pain.; ; There is no acute fracture or dislocation. There is narrowing of the joint; spaces. Chondrocalcinosis is present. A small suprapatellar joint effusion is; present.; ; IMPRESSION:; ; Degenerative change as described above.; ; ; Signed by; Jacobo Muhammad MD 03/20/2016 09:30 A; Radiology Order: Ultrasound LE Unilateral R/O DVT Test: Ultrasound LE Unilateral R/O DVT REASON FOR EXAMINATION: Deformity/Swelling; Left lower extremity deep vein duplex ultrasound, stat request:; ; The deep veins demonstrate normal compression, normal Doppler color flow and; normal Doppler waveforms with respiration augmentation at multiple levels from; the popliteal vein to the common femoral vein.; ; There is no evidence of deep vein thrombus.; ; There is a 3.9 by 2.3 x 3.5 cm Weldon's cyst in the popliteal fossa.; ; ; Signed by; Valentino Min MD 03/20/2016 08:42 A; Outcome: 03/20 10:43 Decision to Hospitalize by Provider. br1 13:04 Discharge Assessment: Patient awake, alert and oriented x 3. No cognitive and/or mb9 functional deficits noted. Patient verbalized understanding of disposition instructions. patient administered narcotics - no. The following High Risk Discharge criteria are identified: None. Admitted to Med/Surg accompanied by tech. Condition: good Condition: stable Condition: improved. Ultrasound Study completed. Property :Personal belongings accompany Pt. 13:37 Patient left the ED. mb9 Signatures: Dispatcher [employer] EDMS Barbra Green, Carpenter Inspector Unit lbd Roxane Mack RN RN mcp Barnhardt, Gloria, Reg Reg gb Shabbir Lovell, Reg Reg lg Shankar Carlson MD MD br1 Elena Stanley br3 Sachin Brewster RN RN mb9 Danyell Ruelas RN RN kc3 Chart Complete MTDD
--- NOTE | 2016-03-22 14:38 | EDDOCDS ---
Physician Documentation [facility] Name: Marta Burrell Age: 89 yrs Sex: Female : 1925 Arrival Date: 03/20/2016 Time: 07:52 Bed 14 Private MD: Oracio Fletcher MD Disposition: 03/20/16 10:43 Hospitalization ordered by Kade Duran for Inpatient Admission. Preliminary diagnosis are Abnormalities of gait and mobility, Pain in left knee, Synovial cyst of popliteal space [Weldon], left knee. - Bed requested for 4 [place]. - Status is Inpatient Admission. mb9 - Condition is Stable. - Problem is new. - Symptoms are unchanged. Historical: - Allergies: environmental allergies; PENICILLINS (Rash); - Home Meds: 1. levothyroxine 50 mcg Oral tab 1 tab once daily 2. omeprazole 40 mg Oral cpDR 2 caps once daily 3. Lidoderm 5 % Topical ptmd 1 patch once daily 4. aspirin 81 mg Oral tab 1 tab once daily 5. Osteo Bi-Flex oral daily 6. Calcium Citrate Oral daily 7. lisinopril 5 mg Oral tab 1 tab twice a day 8. fexofenadine 180 mg Oral tab 1 tab once daily 9. Nitrostat 0.3 mg SL subl as needed 10. hydrocodone-acetaminophen 2.5-325 mg Oral tab 0.5 tab as needed 11. timolol maleate 0.5 % Opht drpd 1 drop once daily one drop each eye daily - PMHx: Fibromyalgia; GERD; Glaucoma; Hypercholesterolemia; Hypothyroidism; Myocardial infarction; raynauds diease; Rheumatoid Arthritis; - PSHx: Cardiac stents; esophagus surgery; Appendectomy; Hemorrhoidectomy; Hysterectomy; Tubal ligation; - Social history: No barriers to communication noted, The patient speaks fluent Faroese, Smoking status: Patient states was never smoker of tobacco. - Family history: No immediate family members are acutely ill. - : The pt / caregiver states he / she is not on anticoagulants. Home medication list is obtained from the patient. - Exposure Risk Screening:: None identified. Vital Signs: 03/20 08:06 BP 152 / 69; Pulse 59; Resp 18; Temp 96.6(O); Pulse Ox 99% on R/A; Weight 43.54 kg / kc3 95.99 lbs; Height 4 ft. 8 in. (142.24 cm); Pain 8/10; 13:04 BP 147 / 66; Pulse 57; Resp 17; Temp 97(TE); Pulse Ox 98% ; Pain 0/10; mb9 08:06 Body Mass Index 21.52 (43.54 kg, 142.24 cm) kc3 MDM: 08:05 IV Saline Lock ordered. br1 08:06 Knee, Complete Ordered. EDMS 08:07 CBC with Diff Ordered. EDMS 08:07 BMP Ordered. EDMS 08:07 ESR Ordered. EDMS 08:07 CRP Ordered. EDMS 08:07 Ultrasound LE Unilateral R/O DVT Ordered. EDMS 09:01 CBC with Diff Reviewed. br1 09:01 BMP Reviewed. br1 09:01 CRP Reviewed. br1 09:01 Financial registration complete. lg 09:13 PHYSICAL THERAPY EVAL & TREAT+PT ordered. EDMS 09:38 CBC with Diff Reviewed. br1 09:38 ESR Reviewed. br1 09:38 Ultrasound LE Unilateral R/O DVT Reviewed. br1 09:53 [facility] Payment Agreement was scanned into [email or web address] and attached to record. lg 10:26 BED REQUEST+ADM ordered. EDMS 11:10 REGULAR+DIET ordered. EDMS 11:11 REGULAR+DIET ordered. EDMS 12:48 PHYSICAL THERAPY EVAL & TREAT ordered. EDMS 12:48 Admission / Observation Status ordered. EDMS 12:48 NO ADDED SALT DIET ordered. EDMS 03/21 11:44 T-Sheet-- Draft Copy was scanned into [email or web address] and attached to record. gb 11:44 PCR was scanned into [email or web address] and attached to record. gb 11:44 Radiology Report was scanned into [email or web address] and attached to record. gb Signatures: Dispatcher [employer] EDWA Magi Cadet RN RN Roxane Schwartz RN RN [facility] Maria Guadalupe Nolasco, Reg Reg gb Shabbir Lovell, Reg Reg lg Shankar Carlson MD MD br1 Sachin Brewster RN RN mb9 The chart was reviewed and I authenticate all verbal orders and agree with the evaluation and treatment provided.Attachments: 03/20 09:53 [facility] Payment Agreement lg 03/21 11:44 T-Sheet-- Draft Copy gb Chart Complete MTDD
--- NOTE | 2016-03-22 14:38 | EDDOCDS ---
Physician Documentation [facility] Name: Marta Burrell Age: 89 yrs Sex: Female : 1925 Arrival Date: 03/20/2016 Time: 07:52 Bed 14 Private MD: Oracio Fletcher MD Disposition: 03/20/16 10:43 Hospitalization ordered by Kade Duran for Inpatient Admission. Preliminary diagnosis are Abnormalities of gait and mobility, Pain in left knee, Synovial cyst of popliteal space [Weldon], left knee. - Bed requested for 4 [place]. - Status is Inpatient Admission. mb9 - Condition is Stable. - Problem is new. - Symptoms are unchanged. Historical: - Allergies: environmental allergies; PENICILLINS (Rash); - Home Meds: 1. levothyroxine 50 mcg Oral tab 1 tab once daily 2. omeprazole 40 mg Oral cpDR 2 caps once daily 3. Lidoderm 5 % Topical ptmd 1 patch once daily 4. aspirin 81 mg Oral tab 1 tab once daily 5. Osteo Bi-Flex oral daily 6. Calcium Citrate Oral daily 7. lisinopril 5 mg Oral tab 1 tab twice a day 8. fexofenadine 180 mg Oral tab 1 tab once daily 9. Nitrostat 0.3 mg SL subl as needed 10. hydrocodone-acetaminophen 2.5-325 mg Oral tab 0.5 tab as needed 11. timolol maleate 0.5 % Opht drpd 1 drop once daily one drop each eye daily - PMHx: Fibromyalgia; GERD; Glaucoma; Hypercholesterolemia; Hypothyroidism; Myocardial infarction; raynauds diease; Rheumatoid Arthritis; - PSHx: Cardiac stents; esophagus surgery; Appendectomy; Hemorrhoidectomy; Hysterectomy; Tubal ligation; - Social history: No barriers to communication noted, The patient speaks fluent Luxembourgish, Smoking status: Patient states was never smoker of tobacco. - Family history: No immediate family members are acutely ill. - : The pt / caregiver states he / she is not on anticoagulants. Home medication list is obtained from the patient. - Exposure Risk Screening:: None identified. Vital Signs: 03/20 08:06 BP 152 / 69; Pulse 59; Resp 18; Temp 96.6(O); Pulse Ox 99% on R/A; Weight 43.54 kg / kc3 95.99 lbs; Height 4 ft. 8 in. (142.24 cm); Pain 8/10; 13:04 BP 147 / 66; Pulse 57; Resp 17; Temp 97(TE); Pulse Ox 98% ; Pain 0/10; mb9 08:06 Body Mass Index 21.52 (43.54 kg, 142.24 cm) kc3 MDM: 08:05 IV Saline Lock ordered. br1 08:06 Knee, Complete Ordered. EDMS 08:07 CBC with Diff Ordered. EDMS 08:07 BMP Ordered. EDMS 08:07 ESR Ordered. EDMS 08:07 CRP Ordered. EDMS 08:07 Ultrasound LE Unilateral R/O DVT Ordered. EDMS 09:01 CBC with Diff Reviewed. br1 09:01 BMP Reviewed. br1 09:01 CRP Reviewed. br1 09:01 Financial registration complete. lg 09:13 PHYSICAL THERAPY EVAL & TREAT+PT ordered. EDMS 09:38 CBC with Diff Reviewed. br1 09:38 ESR Reviewed. br1 09:38 Ultrasound LE Unilateral R/O DVT Reviewed. br1 09:53 [facility] Payment Agreement was scanned into [employer] and attached to record. lg 10:26 BED REQUEST+ADM ordered. EDMS 11:10 REGULAR+DIET ordered. EDMS 11:11 REGULAR+DIET ordered. EDMS 12:48 PHYSICAL THERAPY EVAL & TREAT ordered. EDMS 12:48 Admission / Observation Status ordered. EDMS 12:48 NO ADDED SALT DIET ordered. EDMS 03/21 11:44 T-Sheet-- Draft Copy was scanned into [employer] and attached to record. gb 11:44 PCR was scanned into [employer] and attached to record. gb 11:44 Radiology Report was scanned into [employer] and attached to record. gb Signatures: Dispatcher [employer] EDDE Magi Cadet RN RN Roxane Schwartz RN RN [facility] Maria Guadalupe Nolasco, Reg Reg gb Shabbir Lovell, Reg Reg lg Shankar Carlson MD MD br1 Sachin Brewster RN RN mb9 The chart was reviewed and I authenticate all verbal orders and agree with the evaluation and treatment provided.Attachments: 03/20 09:53 [facility] Payment Agreement lg 03/21 11:44 T-Sheet-- Draft Copy gb Chart Complete MTDD
--- NOTE | 2016-04-02 08:26 | CR ---
DATE OF CONSULTATION: 03/20/2016 REASON FOR CONSULTATION: I was asked to see the patient on 03/20/2016, to evaluate left knee pain. HISTORY: The left knee had been bothering her for about a week. Had imaging studies reflecting degenerative changes and calcification of the meniscus consistent with possible pseudogout. I reviewed the imaging studies. CLINICAL EXAM: She is alert, oriented, cooperative. Mood and affect appropriate. There may be trace of effusion. There is no erythema. She is not in distress. She has knee pain at the joint lines. Her medical record was reviewed. IMPRESSION: Likely pseudogout. RECOMMENDATIONS: I recommend nonsteroidal anti-inflammatory drugs (NSAIDS), pain management and followup with orthopedics in one or two weeks. I explained this to the patient and she was comfortable with that plan. We spent approximately 10-15 minutes together with this patient..
== END 2016-03-21 13:43 | disposition home health service (06) ==
LOC: M ED 07:52 → M ED INP 12:27 → M MSPAV 13:52
PROVIDERS: ADMIT Family Medicine; ATTEND Family Medicine
DX: M11.862 Other specified crystal arthropathies, left knee (principal); M79.605 Pain in left leg; I10 Essential (primary) hypertension; E03.9 Hypothyroidism, unspecified; I25.10 Atherosclerotic heart disease of native coronary artery without angina pectoris; G89.29 Other chronic pain; K44.9 Diaphragmatic hernia without obstruction or gangrene; M79.7 Fibromyalgia; Z98.61 Coronary angioplasty status; Z79.82 Long term (current) use of aspirin; Z88.0 Allergy status to penicillin; Z88.8 Allergy status to other drugs, medicaments and biological substances; Z79.899 Other long term (current) drug therapy
CPT/HCPCS: 36415; 73564; 80048; 80053; 84439; 84443; 85025; 85652; 86140; 93971; 96372; 97161; 97530; 99285; G0378; G8978; G8979; G8980; J1650

== ENCOUNTER → 2016-04-12 | Outpatient (REF) | payer MEDICARE, OTHER ==
[~2016-04-12] MED LIST: ASPI1TAB PO; CALCTAB34 PO; LISI-542 PO; NITR3TA SL; NORC5TAB PO; OSTETAB2 PO; PRED20TA PO; SYNT25TA PO; TIMO5OPG OU
[2016-04-12 12:57] LABS: ALBUMIN 3.4 GM/DL (3.2-5.2); ALBUMIN/GLOBULIN RATIO 1.17 (1.00-1.93); ALKALINE PHOSPHATASE 67 U/L (45-117); ALT/SGPT 21 U/L (12-78); ANION GAP 4 MEQ/L (8-16); AST/SGOT 18 U/L (15-37); BILIRUBIN,TOTAL 0.8 MG/DL (0.2-1.0); BLOOD UREA NITROGEN 15 MG/DL (7-18); CALCIUM LEVEL 8.9 MG/DL (8.8-10.2); CARBON DIOXIDE LEVEL 33 MEQ/L (21-32); CHLORIDE LEVEL 106 MEQ/L (98-107); CREATININE FOR GFR 0.84 MG/DL (0.55-1.02); GLOMERULAR FILTRATION RATE > 60.0 (>32); GLUCOSE, FASTING 79 MG/DL (83-110); POTASSIUM SERUM 4.6 MEQ/L (3.5-5.1); SODIUM LEVEL 143 MEQ/L (136-145); TOTAL PROTEIN 6.3 GM/DL (6.4-8.2)
[2016-04-12 12:58] LABS: BASO # 0.1 K/mm3 (0.0-0.2); BASO % 0.5 % (0.0-1.0); EOS # 0.4 K/mm3 (0.0-0.50); LARGE UNSTAINED CELL # 0.4 K/mm3 (0.0-0.4); LARGE UNSTAINED CELL % 3.3 % (0.0-4.0); LYMPH # 6.8 K/mm3 (1.5-4.5); LYMPH % 52.4 % (24.0-44.0); MEAN CORPUSCULAR HEMOGLOBIN 31.3 pg (27.0-33.0); MEAN CORPUSCULAR HGB CONC 32.6 g/dl (32.0-36.5); MEAN CORPUSCULAR VOLUME 96.1 fl (80.0-96.0); MONO # 0.6 K/mm3 (0.0-0.8); MONO % 5.1 % (0.0-5.0); NEUTROPHILS # 4.4 K/mm3 (1.8-7.7); NEUTROPHILS % 35.7 % (36.0-66.0); PLATELET COUNT, AUTOMATED 233 k/mm3 (150-450)
[2016-04-12 13:02] LABS: WHITE BLOOD COUNT 12.3 K/mm3 (4.0-10.0)
== END ==
LOC: M SFHCADAM 12:30
PROVIDERS: ATTEND Physician Assistant
DX: I25.10 Atherosclerotic heart disease of native coronary artery without angina pectoris (principal)

== ENCOUNTER → 2016-04-19 | Outpatient (REF) | payer MEDICARE, OTHER ==
[2016-04-19 13:50] LABS: FOLATE > 24.0 NG/ML; VITAMIN B12 LEVEL 1049 PG/ML
== END ==
LOC: M SFHCADAM 10:27
PROVIDERS: ATTEND Physician Assistant
DX: M79.7 Fibromyalgia (principal); M11.862 Other specified crystal arthropathies, left knee; D51.0 Vitamin B12 deficiency anemia due to intrinsic factor deficiency; Z79.899 Other long term (current) drug therapy
CPT/HCPCS: 82306; 82607; 82746; G0463

== ENCOUNTER → 2016-05-12 | Outpatient (REF) | payer MEDICARE, OTHER ==
[~2016-05-12] MED LIST changes: +NORC1TAB4 PO; -NORC5TAB PO
== END ==
LOC: M LAB REF 12:20
PROVIDERS: ATTEND Physician Assistant
DX: N39.0 Urinary tract infection, site not specified (principal)

== ENCOUNTER → 2016-08-23 | Outpatient (REF) | payer MEDICARE, OTHER ==
[2016-08-23 12:41] LABS: FREE T4 1.06 NG/DL (0.76-1.46)
== END ==
LOC: M SFHCADAM 08:01
PROVIDERS: ATTEND Physician Assistant Medical
DX: D51.0 Vitamin B12 deficiency anemia due to intrinsic factor deficiency (principal); E03.9 Hypothyroidism, unspecified

== ENCOUNTER → 2016-12-03 | Outpatient (REF) | payer MEDICARE, OTHER ==
[2016-12-03 13:53] LABS: MEAN CORPUSCULAR HEMOGLOBIN 30.6 pg (27.0-33.0); MEAN CORPUSCULAR HGB CONC 31.9 g/dl (32.0-36.5); MEAN CORPUSCULAR VOLUME 95.8 fl (80.0-96.0); PLATELET COUNT, AUTOMATED 255 10^3/uL (150-450); RED CELL DISTRIBUTION WIDTH 13.8 % (11.5-14.5)
[2016-12-03 14:10] LABS: WHITE BLOOD COUNT 12.2 10^3/uL (4.0-10.0)
[2016-12-03 14:11] LABS: ADD MANUAL DIFFER YES; BLASTS POS FLAG; DIFF SLIDE NUMBER 156; POSITIVE DIFF POS FLAG; POSITIVE MORPH POS FLAG; VITAMIN B12 LEVEL 880 PG/ML (247-911)
[2016-12-03 14:13] LABS: ALBUMIN 3.7 GM/DL (3.2-5.2); ALBUMIN/GLOBULIN RATIO 1.32 (1.00-1.93); ALKALINE PHOSPHATASE 63 U/L (45-117); ALT/SGPT 20 U/L (12-78); ANION GAP 7 MEQ/L (8-16); AST/SGOT 17 U/L (15-37); BILIRUBIN,TOTAL 0.8 MG/DL (0.2-1.0); BLOOD UREA NITROGEN 18 MG/DL (7-18); CALCIUM LEVEL 9.1 MG/DL (8.8-10.2); CARBON DIOXIDE LEVEL 31 MEQ/L (21-32); CHLORIDE LEVEL 103 MEQ/L (98-107); CHOLESTEROL LEVEL 239 MG/DL (<200); CREATININE FOR GFR 0.93 MG/DL (0.55-1.02); FREE T4 1.01 NG/DL (0.76-1.46); GLOMERULAR FILTRATION RATE > 60.0 (>32); GLUCOSE, FASTING 82 MG/DL (83-110); POTASSIUM SERUM 4.8 MEQ/L (3.5-5.1); SODIUM LEVEL 141 MEQ/L (136-145); TOTAL PROTEIN 6.5 GM/DL (6.4-8.2); TRIGLYCERIDES LEVEL 139 MG/DL (<150)
[2016-12-03 14:25] LABS: EOSINOPHILS 2 % (0-5)
== END ==
LOC: M SFHCADAM 09:47
PROVIDERS: ATTEND Family Medicine
DX: H35.043 Retinal micro-aneurysms, unspecified, bilateral (principal); I25.10 Atherosclerotic heart disease of native coronary artery without angina pectoris; E03.9 Hypothyroidism, unspecified; C91.10 Chronic lymphocytic leukemia of B-cell type not having achieved remission; D51.0 Vitamin B12 deficiency anemia due to intrinsic factor deficiency; Z23 Encounter for immunization; I10 Essential (primary) hypertension; D50.1 Sideropenic dysphagia; Z95.5 Presence of coronary angioplasty implant and graft; Z79.82 Long term (current) use of aspirin; Z79.899 Other long term (current) drug therapy; Z79.891 Long term (current) use of opiate analgesic
CPT/HCPCS: 80053; 80061; 82607; 83036; 84439; 84443; 85025; 90662; G0008; G0463

== ENCOUNTER 2017-03-04 09:06 | Inpatient (IN) | payer MEDICARE, OTHER ==
[2017-03-04] MEDS: TIMOLOL XE GFS 0.5% OPHTH 5 ML OU (09:00)
[2017-03-04] MEDS: MORPHINE 2 MG/ML 1ML SYRINGE IV (09:41)
[2017-03-04] MEDS: ONDANSETRON 4MG/2ML VIAL (J2405) IV (09:41)
[2017-03-04 09:50] LABS: HEMATOCRIT 35.8 % (36.0-47.0); HEMOGLOBIN 11.8 g/dl (12.0-16.0); MEAN CORPUSCULAR HEMOGLOBIN 31.2 pg (27.0-33.0); MEAN CORPUSCULAR VOLUME 94.7 fl (80.0-96.0); PLATELET COUNT, AUTOMATED 216 10^3/uL (150-450); RED BLOOD COUNT 3.78 10^6/uL (4.00-5.40); RED CELL DISTRIBUTION WIDTH 13.5 % (11.5-14.5)
[2017-03-04 09:56] LABS: POSITIVE DIFF POS FLAG; WHITE BLOOD COUNT 12.1 10^3/uL (4.0-10.0)
[2017-03-04 09:57] LABS: ADD MANUAL DIFFER YES; DIFF SLIDE NUMBER 166
[2017-03-04 10:05] LABS: INR 0.97
[2017-03-04 10:13] LABS: ATYPICAL LYMPH 3 % (0-5); BANDS 2 % (< 11); LYMPHOCYTES 45 % (16-52); METAMYELOCYTES 2 % (0-0); MONOCYTES 10 % (0-8); MYELOCYTES 2 % (0-0); NEUTROPHILS 36 % (35-75)
[2017-03-04 10:14] LABS: PLATELET ESTIMATE NORMAL (NORMAL)
[2017-03-04 10:16] LABS: ALBUMIN 3.5 GM/DL (3.2-5.2); ALBUMIN/GLOBULIN RATIO 1.21 (1.00-1.93); ALKALINE PHOSPHATASE 73 U/L (45-117); ALT/SGPT 24 U/L (12-78); ANION GAP 2 MEQ/L (8-16); AST/SGOT 21 U/L (7-37); BILIRUBIN,TOTAL 0.5 MG/DL (0.2-1.0); BLOOD UREA NITROGEN 20 MG/DL (7-18); CALCIUM LEVEL 8.8 MG/DL (8.8-10.2); CARBON DIOXIDE LEVEL 32 MEQ/L (21-32); CHLORIDE LEVEL 106 MEQ/L (98-107); CREATININE FOR GFR 0.85 MG/DL (0.55-1.02); GLOMERULAR FILTRATION RATE > 60.0 (>32); GLUCOSE, FASTING 77 MG/DL (70-100); POTASSIUM SERUM 4.3 MEQ/L (3.5-5.1); SODIUM LEVEL 140 MEQ/L (136-145); TOTAL PROTEIN 6.4 GM/DL (6.4-8.2)
[2017-03-04] MEDS ORDERED: MIRALAX *UNIT DOSE* 17GM PACKET PO (14:30)
[2017-03-04] MEDS: NORCO, ANEXSIA 5/325MG TABLET (HYDROcodone/ACETAMINOPHEN) PO (18:13)
[2017-03-04] MEDS: ENOXAPARIN 30 MG/0.3 ML SYR (J1650) SC (18:14)
[2017-03-04] MEDS: LISINOPRIL 5 MG TAB PO (21:22)
[2017-03-04] MEDS: ACETAMINOPHEN TAB 650MG DOSE (2X325MG) PO (21:25)
[2017-03-05] MEDS: LEVOTHYROXINE 25MCG TABLET (0.025MG) PO (06:25)
[2017-03-05] MEDS: PANTOPRAZOLE 40MG TAB (PROTONIX) PO (09:18)
[2017-03-05] MEDS: TIMOLOL XE GFS 0.5% OPHTH 5 ML OU (09:19)
[2017-03-05] MEDS: ACETAMINOPHEN TAB 650MG DOSE (2X325MG) PO ×2 (13:24→17:30)
[2017-03-05] MEDS: LISINOPRIL 5 MG TAB PO (22:04)
[2017-03-06] MEDS: LEVOTHYROXINE 25MCG TABLET (0.025MG) PO (06:24)
[2017-03-06] MEDS: TIMOLOL XE GFS 0.5% OPHTH 5 ML OU (08:52)
[2017-03-06] MEDS: PANTOPRAZOLE 40MG TAB (PROTONIX) PO (08:52)
[2017-03-06] MEDS: ACETAMINOPHEN TAB 650MG DOSE (2X325MG) PO (12:49)
== END 2017-03-06 13:55 | disposition home health service (06) | DRG 536 ==
LOC: M ED 09:06 → M ED INP 14:27 → M MS5PR 17:55
DX: S32.501A Unspecified fracture of right pubis, initial encounter for closed fracture (principal); C91.10 Chronic lymphocytic leukemia of B-cell type not having achieved remission; E03.9 Hypothyroidism, unspecified; I10 Essential (primary) hypertension; I25.10 Atherosclerotic heart disease of native coronary artery without angina pectoris; D50.1 Sideropenic dysphagia; R29.6 Repeated falls; M79.7 Fibromyalgia; M81.0 Age-related osteoporosis without current pathological fracture; Z66 Do not resuscitate; Z95.5 Presence of coronary angioplasty implant and graft; Z79.82 Long term (current) use of aspirin; Z79.899 Other long term (current) drug therapy; W01.0XXA Fall on same level from slipping, tripping and stumbling without subsequent striking against object, initial encounter; Y92.010 Kitchen of single-family (private) house as the place of occurrence of the external cause; Z88.0 Allergy status to penicillin; Z88.8 Allergy status to other drugs, medicaments and biological substances; Z85.828 Personal history of other malignant neoplasm of skin

== ENCOUNTER → 2017-07-11 | Outpatient (CLI) | payer MEDICARE, OTHER | LOC: M RAD 13:25 | DX: R09.89 Other specified symptoms and signs involving the circulatory and respiratory systems (principal) | CPT/HCPCS: 93880 ==

== ENCOUNTER 2017-08-19 19:59 | Emergency (ER) | payer MEDICARE, OTHER ==
[2017-08-19] MEDS: NS 1,000 ML IV (20:27)
[2017-08-19] MEDS: ONDANSETRON 4MG/2ML VIAL (J2405) IV (20:30)
[2017-08-19 22:01] LABS: HEMATOCRIT 33.1 % (36.0-47.0); HEMOGLOBIN 10.8 g/dl (12.0-15.5); MEAN CORPUSCULAR HEMOGLOBIN 31.5 pg (27.0-33.0); MEAN CORPUSCULAR HGB CONC 32.6 g/dl (32.0-36.5); MEAN CORPUSCULAR VOLUME 96.5 fl (80.0-96.0); PLATELET COUNT, AUTOMATED 243 10^3/uL (150-450); RED BLOOD COUNT 3.43 10^6/uL (4.00-5.40); RED CELL DISTRIBUTION WIDTH 13.2 % (11.5-14.5)
[2017-08-19 22:14] LABS: ADD MANUAL DIFFER YES; DIFF SLIDE NUMBER 400; POSITIVE DIFF POS FLAG; WHITE BLOOD COUNT 12.2 10^3/uL (4.0-10.0)
[2017-08-19 22:38] LABS: ALBUMIN 3.2 GM/DL (3.2-5.2); ALBUMIN/GLOBULIN RATIO 1.19 (1.00-1.93); ALKALINE PHOSPHATASE 97 U/L (45-117); ALT/SGPT 17 U/L (12-78); ANION GAP 5 MEQ/L (8-16); AST/SGOT 16 U/L (7-37); BILIRUBIN,DIRECT 0.1 MG/DL (0.0-0.2); BILIRUBIN,TOTAL 0.4 MG/DL (0.2-1.0); BLOOD UREA NITROGEN 18 MG/DL (7-18); CALCIUM LEVEL 8.6 MG/DL (8.8-10.2); CARBON DIOXIDE LEVEL 31 MEQ/L (21-32); CHLORIDE LEVEL 107 MEQ/L (98-107); CK-MB VALUE MASS 2.9 NG/ML (<3.6); CPK CREATINE PHOSPHOKINASE 108 U/L (26-192); CREATININE FOR GFR 0.78 MG/DL (0.55-1.30); GLOMERULAR FILTRATION RATE > 60.0 (>32); GLUCOSE, FASTING 116 MG/DL (70-100); LIPASE 130 U/L (73-393); MB/CK RELATIVE INDEX 2.68 (< OR =4); POTASSIUM SERUM 3.7 MEQ/L (3.5-5.1); SODIUM LEVEL 143 MEQ/L (136-145); TOTAL PROTEIN 5.9 GM/DL (6.4-8.2); TROPONIN I < 0.02 NG/ML (< 0.10)
[2017-08-19 22:45] LABS: LACTIC ACID SEPSIS PROTOCOL 1.3 MMOL/L (0.4-2.0)
[2017-08-19 22:54] LABS: EOSINOPHILS 2 % (0-5); LYMPHOCYTES 39 % (16-52); MONOCYTES 6 % (0-8); NEUTROPHILS 53 % (35-75); PLATELET ESTIMATE NORMAL (NORMAL)
[2017-08-19] MEDS: GASTROGRAFIN SOLUTION 30ML PO (23:45)
[2017-08-20] MEDS: GASTROGRAFIN SOLUTION 30ML PO (00:15)
[2017-08-20] MEDS ORDERED: ISOVUE-370 76% 100ML VIAL (Q9967) As Ordered (01:17)
== END 2017-08-20 02:12 | disposition home or self-care (01) ==
LOC: M ED 08-20 02:12
DX: R10.9 Unspecified abdominal pain (principal); I25.10 Atherosclerotic heart disease of native coronary artery without angina pectoris; M19.90 Unspecified osteoarthritis, unspecified site; E78.5 Hyperlipidemia, unspecified; M79.7 Fibromyalgia; M48.00 Spinal stenosis, site unspecified; I73.00 Raynaud's syndrome without gangrene; H40.9 Unspecified glaucoma; Z95.5 Presence of coronary angioplasty implant and graft; M47.816 Spondylosis without myelopathy or radiculopathy, lumbar region; Z79.899 Other long term (current) drug therapy; Z88.0 Allergy status to penicillin; Z88.8 Allergy status to other drugs, medicaments and biological substances; J30.2 Other seasonal allergic rhinitis
CPT/HCPCS: Q9963

== ENCOUNTER → 2017-08-25 | Outpatient (CLI) | payer MEDICARE, OTHER ==
[~2017-08-25] MED LIST changes: -ASPI1TAB PO; -CALCTAB34 PO; +E-Z-GAS II EFFERVESCENT PACKET (SODIUM BICARB./CITRIC ACID/SIMETHICONE) As Ordered; +E-Z-HD 98% w/w 340GM SUSP BTL As Ordered; +E-Z-PAQUE 96% w/w SUSP 176GM BTL As Ordered; -LISI-542 PO; -NITR3TA SL; -NORC1TAB4 PO; -OSTETAB2 PO; -PRED20TA PO; -SYNT25TA PO; -TIMO5OPG OU
== END ==
LOC: M RAD 10:18
DX: R13.10 Dysphagia, unspecified (principal); R12 Heartburn
CPT/HCPCS: 74220

== ENCOUNTER 2017-09-07 13:24 | Emergency (ER) | payer MEDICARE, OTHER ==
[2017-09-07 14:09] LABS: HEMATOCRIT 37.5 % (36.0-47.0); MEAN CORPUSCULAR HEMOGLOBIN 31.2 pg (27.0-33.0); MEAN CORPUSCULAR VOLUME 97.4 fl (80.0-96.0); PLATELET COUNT, AUTOMATED 247 10^3/uL (150-450); RED BLOOD COUNT 3.85 10^6/uL (4.00-5.40); RED CELL DISTRIBUTION WIDTH 13.1 % (11.5-14.5)
[2017-09-07 14:11] LABS: ADD MANUAL DIFFER YES; DIFF SLIDE NUMBER 128; POSITIVE DIFF POS FLAG; POSITIVE MORPH POS FLAG; WHITE BLOOD COUNT 12.9 10^3/uL (4.0-10.0)
[2017-09-07 14:30] LABS: ANION GAP 5 MEQ/L (8-16); BLOOD UREA NITROGEN 17 MG/DL (7-18); CALCIUM LEVEL 8.9 MG/DL (8.8-10.2); CARBON DIOXIDE LEVEL 30 MEQ/L (21-32); CHLORIDE LEVEL 109 MEQ/L (98-107); CREATININE FOR GFR 0.83 MG/DL (0.55-1.30); GLOMERULAR FILTRATION RATE > 60.0 (>32); GLUCOSE, FASTING 98 MG/DL (70-100); POTASSIUM SERUM 4.2 MEQ/L (3.5-5.1); SODIUM LEVEL 144 MEQ/L (136-145)
[2017-09-07 14:38] LABS: ATYPICAL LYMPH 5 % (0-5); EOSINOPHILS 2 % (0-5); LYMPHOCYTES 43 % (16-52); MONOCYTES 4 % (0-8); NEUTROPHILS 46 % (35-75)
[2017-09-07 14:39] LABS: PLATELET ESTIMATE NORMAL (NORMAL)
== END 2017-09-07 16:25 | disposition home or self-care (01) ==
LOC: M ED 13:24
DX: J02.9 Acute pharyngitis, unspecified (principal); H92.02 Otalgia, left ear; I10 Essential (primary) hypertension; I25.2 Old myocardial infarction; I73.00 Raynaud's syndrome without gangrene; M79.7 Fibromyalgia; Z95.5 Presence of coronary angioplasty implant and graft; Z86.2 Personal history of diseases of the blood and blood-forming organs and certain disorders involving the immune mechanism; Z91.048 Other nonmedicinal substance allergy status; Z88.0 Allergy status to penicillin; Z88.8 Allergy status to other drugs, medicaments and biological substances; Z79.890 Hormone replacement therapy; Z79.899 Other long term (current) drug therapy
CPT/HCPCS: 70480

== ENCOUNTER 2017-09-08 12:27 | Day surgery (SDC) | payer MEDICARE, OTHER ==
[2017-09-08] MEDS ORDERED: NS 1,000 ML IV (13:45)
[2017-09-08] MEDS ORDERED: LIDOCAINE 2% INJ 100 MG/5 ML SDV (FOR ANES.) As Ordered (14:12)
[2017-09-08] MEDS ORDERED: fentaNYL 100 MCG/2 ML INJECTION (J3010) As Ordered (14:13)
[2017-09-08] MEDS ORDERED: PROPOFOL 200 MG/20 ML VIAL As Ordered (14:13)
== END 2017-09-08 15:23 | disposition home or self-care (01) ==
LOC: M OPP 12:27
DX: R13.11 Dysphagia, oral phase (principal); K44.9 Diaphragmatic hernia without obstruction or gangrene; K22.2 Esophageal obstruction; I25.10 Atherosclerotic heart disease of native coronary artery without angina pectoris; Z95.5 Presence of coronary angioplasty implant and graft; I25.2 Old myocardial infarction; I10 Essential (primary) hypertension; R01.1 Cardiac murmur, unspecified; E03.9 Hypothyroidism, unspecified; R14.0 Abdominal distension (gaseous); D50.1 Sideropenic dysphagia; K21.9 Gastro-esophageal reflux disease without esophagitis; D64.9 Anemia, unspecified; E11.9 Type 2 diabetes mellitus without complications; M19.90 Unspecified osteoarthritis, unspecified site; M35.00 Sjogren syndrome, unspecified; M48.00 Spinal stenosis, site unspecified; M79.7 Fibromyalgia; I73.00 Raynaud's syndrome without gangrene; Z88.8 Allergy status to other drugs, medicaments and biological substances; Z88.0 Allergy status to penicillin; Z79.899 Other long term (current) drug therapy
CPT/HCPCS: 43450

== ENCOUNTER → 2017-09-22 | Outpatient (CLI) | payer MEDICARE, OTHER | LOC: M ST 10:45 | DX: R13.10 Dysphagia, unspecified (principal); R93.3 Abnormal findings on diagnostic imaging of other parts of digestive tract | CPT/HCPCS: 74230 ==

== ENCOUNTER → 2017-11-11 | Outpatient (REF) | payer MEDICARE, OTHER ==
[2017-11-11 12:50] LABS: HEMATOCRIT 37.5 % (36.0-47.0); HEMOGLOBIN 11.9 g/dl (12.0-15.5); MEAN CORPUSCULAR HEMOGLOBIN 30.6 pg (27.0-33.0); MEAN CORPUSCULAR HGB CONC 31.7 g/dl (32.0-36.5); MEAN CORPUSCULAR VOLUME 96.4 fl (80.0-96.0); PLATELET COUNT, AUTOMATED 250 10^3/uL (150-450); RED BLOOD COUNT 3.89 10^6/uL (4.00-5.40); RED CELL DISTRIBUTION WIDTH 13.2 % (11.5-14.5)
[2017-11-11 13:02] LABS: ADD MANUAL DIFFER YES; DIFF SLIDE NUMBER 135; POSITIVE DIFF POS FLAG; WHITE BLOOD COUNT 11.1 10^3/uL (4.0-10.0)
[2017-11-11 13:26] LABS: ALBUMIN 3.3 GM/DL (3.2-5.2); ALKALINE PHOSPHATASE 83 U/L (45-117); ALT/SGPT 16 U/L (12-78); ANION GAP 6 MEQ/L (8-16); AST/SGOT 16 U/L (7-37); BILIRUBIN,TOTAL 0.7 MG/DL (0.2-1.0); BLOOD UREA NITROGEN 13 MG/DL (7-18); CALCIUM LEVEL 8.8 MG/DL (8.8-10.2); CARBON DIOXIDE LEVEL 30 MEQ/L (21-32); CHLORIDE LEVEL 107 MEQ/L (98-107); CHOLESTEROL LEVEL 201 MG/DL (<200); CHOLESTEROL RISK RATIO 3.465 (<5); CREATININE FOR GFR 0.83 MG/DL (0.55-1.30); FREE T4 1.22 NG/DL (0.76-1.46); GLOMERULAR FILTRATION RATE > 60.0 (>32); GLUCOSE, FASTING 81 MG/DL (70-100); HDL CHOLESTEROL 58 MG/DL (>40); LDL CHOLESTEROL 116 MG/DL (<100); NON-HDL-C 143 MG/DL; POTASSIUM SERUM 4.6 MEQ/L (3.5-5.1); SODIUM LEVEL 143 MEQ/L (136-145); THYROID STIMULATING HORMONE 0.056 uIU/ML (0.358-3.740); TOTAL PROTEIN 6.6 GM/DL (6.4-8.2); TRIGLYCERIDES LEVEL 136 MG/DL (<150)
[2017-11-11 13:38] LABS: EOSINOPHILS 2 % (0-5); LYMPHOCYTES 65 % (16-52); NEUTROPHILS 33 % (35-75); PLATELET ESTIMATE NORMAL (NORMAL)
== END ==
LOC: M SFHCADAM 07:40
DX: C91.10 Chronic lymphocytic leukemia of B-cell type not having achieved remission (principal); E03.9 Hypothyroidism, unspecified; I25.10 Atherosclerotic heart disease of native coronary artery without angina pectoris; Z78.9 Other specified health status
CPT/HCPCS: 84443